=== PATIENT | female | born 1960 | race Caucasian/White ===

== ENCOUNTER → 2024-12-19 | Outpatient (CLI) | payer BC, SELFPAY ==
--- NOTE | 2024-12-19 13:20 | XR_ITS ---
Examination: Bone densitometry Date and time of exam:December 19, 2024 1357 hours INDICATIONS: Menopause age 54% history osteoporosis Technique: Lumbar spine and hip total bone mineralization values of an calculated. Peak reference and age match control results have been displayed. Findings: Lumbar spine total bone mineralization is0.561 gm/cm2. This is 4.4 standard deviations below peak reference. This is 2.8 standard deviations below age-matched controls. Hip total bone mineralization is 0.637 gm/cm2 This is 2.5 standard deviations below peak reference. This is 1.4 standard deviations below age-matched controls Impression: There is osteoporosis based on lumbar spine measurements. There is osteoporosis based on hip measurements Lumbar mineralization is decreased 8.2% compared with 02/10/2021 Hip mineralization is decreased 2.0% compared with 02/10/2021
== END | disposition home or self-care (01) ==
LOC: CDIM 13:25
PROVIDERS: Referring Provider Family Medicine; Visit Provider Family Medicine
DX: M81.0 Age-related osteoporosis without current pathological fracture (principal)
CPT/HCPCS: 77080